=== PATIENT | male | born 1950 | race Caucasian/White ===

== ENCOUNTER 2017-01-03 15:27 | Emergency (ER) | payer OTHER ==
[~2017-01-03] VITALS: Ht 174 cm; Wt 100.5 kg
[2017-01-03 15:32] VITALS: TEMP 37.1; Ht 174 cm; Wt 100.5 kg
[2017-01-03] MEDS ORDERED: FLUT1SPR12 NAE (15:58)
[2017-01-03] MEDS ORDERED: ASPI81TA28 PO (15:58)
[2017-01-03] MEDS ORDERED: CHOL1000 PO (15:58)
--- NOTE | 2017-01-03 16:06 | EMERGENCY ROOM VISIT NOTE ---
History First contact with patient: 15:45 Chief Complaint: HYPERTENSION Stated Complaint: HIGH BLOOD PRESSURE, DIZZY History of Present Illness The patient is a 66 year old male who presents to the Emergency Room via private vehicle accompanied by female with complaints of "high blood pressure, dizzy". The patient states that back in the spring time he felt some pressure inside his head. He states that there is discomfort in the right eustachian tube region and was seen by his family doctor who believed that hypertension could be the cause but his blood pressure was 135/84. His symptoms resolved until recently he has had pain in the temples on both sides of the head described as a pressure. He states that he was given Flonase nearly 2 weeks ago by his family doctor over concern of eustachian tube dysfunction. He states that his years at the time that looked appropriate. He states that his family doctor encouraged him to keep a note of his daily blood pressures over the past 6 days. Today is day 6 and he notes that he has had averages in the 160 systolic over 80-90 diastolic range. He states that today his blood pressure was elevated at 185/85. He states that he had a dizzy spell, and did not feel quite right today. He took 2 baby aspirin. His legs felt weak bilaterally. At this time his complaints are mild dizziness, and a slight discomfort in the head. He denies any chest pain or shortness of breath. He states that prior to coming here his blood pressure was 189/102 prompting his visit here today. He denies any troubles with speech, unilateral weakness, or recent tick bites. He does not take any medications for his blood pressure at this time. There is no history of Lyme disease. Review of Systems A complete 10-point Review of Systems was discussed with the patient, with pertinent positives and negatives listed in the History of Present Illness. All remaining Review of Systems questions can be considered negative unless otherwise specified. Past Medical/Surgical History Medical Problems: (1) Chronic rhinitis (2) Distal radius fracture, right No pertinent. Family History No pertinent. Social History Smoking Status: Former Smoker Patient lives locally with family. Current/Historical Medications Scheduled Aspirin (Aspirin Ec), 81 MG PO DAILY Cholecalciferol (Vitamin D3), 1,000 INTER.UNIT PO DAILY Fluticasone Propionate (Nasal) (Flonase Allergy Relief ), 2 SPRAYS KODY DAILY Physical Exam Vital Signs Date Time Temp Pulse Resp B/P (MAP) Pulse Ox O2 Delivery O2 Flow Rate FiO2 01/03/17 18:53 76 20 157/93 98 Room Air 01/03/17 17:58 65 20 160/87 98 Room Air 01/03/17 17:00 68 20 155/78 99 Room Air 01/03/17 16:27 69 20 179/86 97 Room Air Nasal Cannula 01/03/17 16:26 70 01/03/17 16:25 97 Room Air 01/03/17 15:32 37.1 94 20 205/103 97 Room Air Physical Exam VITAL SIGNS - Vital signs and nursing notes were reviewed. Hypertensive. GENERAL -66-year-old male appearing his stated age who is in no acute distress. Communicates well with provider and answers questions appropriately. SKIN - Without rashes. No petechial rashes. HEAD - NC/AT. EYES - PERRL with EOMI bilaterally. Sclera anicteric. Palpebral conjunctiva pink and moist with no injection noted EARS - No deformities of external structures noted on gross examination bilaterally. No pain elicited with palpation of the tragus bilaterally. External auditory canals without discharge or otorrhea. Tympanic membranes pearly banks without retraction or bulging. No fluid or purulent material visualized behind the TM. Handle of malleSeptum midline without deviation or septal hematoma noted. MOUTH/OROPHARYNX - Without perioral cyanosis. Buccal mucosa pink and moist and without leukoplakia. Tongue midline with equal elevation of palate bilaterally. No tonsillar hypertrophy, erythema, or exudates noted. NECK - Neck with FROM. LUNGS - Chest wall symmetric without accessory muscle use, intercostals retractions, or central cyanosis. Normal vesicular breath sounds CTA B/L. No wheezes, rales, or rhonchi appreciated. CARDIAC - RRR with S1/S2. No murmur, rubs, or gallops appreciated. EXTREMITIES - No clubbing or peripheral cyanosis. No pretibial edema present. NEUROLOGIC - Cranial nerves II through XII grossly intact. Sensory intact to light touch throughout. PSYCH - A&Ox3 and cooperates fully with examiner. Pt is very pleasant and interacts well with examiner. Medical Decision & Procedures ER Provider Diagnostic Interpretation: CHEST ONE VIEW PORTABLE HISTORY: 66 years-old Male Hypertensive, dizziness, head pressure acute dizziness with hypertension COMPARISON: None available TECHNIQUE: Portable upright AP view of the chest FINDINGS: Cardiomediastinal and hilar silhouettes are within normal limits. There is no pneumothorax, pleural effusion, focal airspace consolidation or overt pulmonary edema. Mild right hemidiaphragmatic elevation. Bones of the chest appear grossly intact. IMPRESSION: Mild right hemidiaphragmatic elevation without acute cardiopulmonary process. The above report was generated using voice recognition software. It may contain grammatical, syntax or spelling errors. Electronically signed by: Hernan Wells M.D. 01/03/2017 4:43 PM Dictated Date/Time: 01/03/2017 4:42 PM HEAD WITHOUT CONTRAST (CT) CLINICAL HISTORY: 66 years-old Male with Hypertensive, dizziness, head pressure. Acute headache with hypertension TECHNIQUE: Multiple axial CT images of the head were obtained without contrast. A dose lowering technique was utilized adhering to the principles of ALARA. CT DOSE: 614.27 mGy.cm COMPARISON: None. FINDINGS: No acute intracranial hemorrhage, midline shift, mass, large territorial ischemia or abnormal extra-axial collection. There is mild atrophy with ex vacuo ventriculomegaly. Coarse calcifications of the falx cerebri are noted. The calvarium is intact. The mastoid air cells, and middle ear cavities are clear. Minimal polypoid mucosal thickening of the left maxillary sinus. Soft tissues are unremarkable. Orbits are symmetric. IMPRESSION: No acute intracranial abnormality. The above report was generated using voice recognition software. It may contain grammatical, syntax or spelling errors. Electronically signed by: Hernan Wells M.D. 01/03/2017 4:52 PM Dictated Date/Time: 01/03/2017 4:50 PM Laboratory Results 01/03/17 17:23 Red Blood Count 4.80, Mean Corpuscular Volume 86.3, Mean Corpuscular Hemoglobin 31.0, Mean Corpuscular Hemoglobin Concent 36.0, Mean Platelet Volume 10.1, Neutrophils (%) (Auto) 77.5, Lymphocytes (%) (Auto) 15.6, Monocytes (%) (Auto) 6.3, Eosinophils (%) (Auto) 0.3, Basophils (%) (Auto) 0.1, Neutrophils # (Auto) 7.83, Lymphocytes # (Auto) 1.58, Monocytes # (Auto) 0.64, Eosinophils # (Auto) 0.03, Basophils # (Auto) 0.01 01/03/17 17:23 Test 01/03/17 16:35 01/03/17 17:23 01/03/17 17:30 Lyme Disease IgG Antibody NEG (NEG) Lyme Disease IgM Antibody NEG (NEG) White Blood Count 10.11 K/uL (4.8-10.8) Red Blood Count 4.80 M/uL (4.7-6.1) Hemoglobin 14.9 g/dL (14.0-18.0) Hematocrit 41.4 % (42-52) Mean Corpuscular Volume 86.3 fL (80-100) Mean Corpuscular Hemoglobin 31.0 pg (25-34) Mean Corpuscular Hemoglobin Concent 36.0 g/dl (32-36) Platelet Count 197 K/uL (130-400) Mean Platelet Volume 10.1 fL (7.4-10.4) Neutrophils (%) (Auto) 77.5 % Lymphocytes (%) (Auto) 15.6 % Monocytes (%) (Auto) 6.3 % Eosinophils (%) (Auto) 0.3 % Basophils (%) (Auto) 0.1 % Neutrophils # (Auto) 7.83 K/uL (1.4-6.5) Lymphocytes # (Auto) 1.58 K/uL (1.2-3.4) Monocytes # (Auto) 0.64 K/uL (0.11-0.59) Eosinophils # (Auto) 0.03 K/uL (0-0.5) Basophils # (Auto) 0.01 K/uL (0-0.2) RDW Standard Deviation 38.4 fL (36.4-46.3) RDW Coefficient of Variation 12.1 % (11.5-14.5) Immature Granulocyte % (Auto) 0.2 % Immature Granulocyte # (Auto) 0.02 K/uL (0.00-0.02) Prothrombin Time 11.1 SECONDS (9.0-12.0) Prothromb Time International Ratio 1.0 (0.9-1.1) Activated Partial Thromboplast Time 27.9 SECONDS (21.0-31.0) Partial Thromboplastin Ratio 1.1 Anion Gap 10.0 mmol/L (3-11) Est Creatinine Clear Calc Drug Dose 91.0 ml/min Estimated GFR () 101.4 Estimated GFR (Non- 87.5 BUN/Creatinine Ratio 11.4 (10-20) Calcium Level 9.2 mg/dl (8.5-10.1) Magnesium Level 2.3 mg/dl (1.8-2.4) Total Bilirubin 0.4 mg/dl (0.2-1) Aspartate Amino Transf (AST/SGOT) 32 U/L (15-37) Alanine Aminotransferase (ALT/SGPT) 54 U/L (12-78) Alkaline Phosphatase 68 U/L (45-117) Total Creatine Kinase 229 U/L (39-308) Creatine Kinase MB 2.6 ng/ml (0.5-3.6) Creatine Kinase MB Ratio 1.1 (0-3.0) Troponin I < 0.015 ng/ml (0-0.045) Total Protein 7.7 gm/dl (6.4-8.2) Albumin 4.1 gm/dl (3.4-5.0) Globulin 3.6 gm/dl (2.5-4.0) Albumin/Globulin Ratio 1.1 (0.9-2) Thyroid Stimulating Hormone (TSH) 1.520 uIu/ml (0.300-4.500) Urine Color YELLOW Urine Appearance CLEAR (CLEAR) Urine pH 5.0 (4.5-7.5) Urine Specific [place] 1.015 (1.000-1.030) Urine Protein NEG (NEG) Urine Glucose (UA) NEG (NEG) Urine Ketones NEG (NEG) Urine Occult Blood NEG (NEG) Urine Nitrite NEG (NEG) Urine Bilirubin NEG (NEG) Urine Urobilinogen NEG (NEG) Urine Leukocyte Esterase NEG (NEG) Medical Decision Patient was seen and evaluated as above. He presents to us today with high blood pressure and dizziness as well as lower extremity weakness for a brief period of time. His symptoms appear to be resolved upon my examination. He converses well. He comes into the hospital with a blood pressure of 205/103. I this time will monitor this will not initiate any medications. Chest x-ray was obtained as well as CT of the head and no emergent process identified. Patient's EKG was obtained 2 and does reveal an inferior infarct no evidence of ST segment elevation myocardial infarction. Troponin negative. Patient was trending in the correct direction with his blood pressure on his own well here in the emergency department. There is no leukocytosis. Hematocrit slightly low at 41.4. Hemoglobin is okay. Coags normal. Patient's metabolic panel reveals no evidence of kidney or liver failure. Glucose is at 1:30. Troponin negative. Thyroid function reveals a euthyroid state. Urine is negative. Lyme testing is negative. I discussed the case with the attending physician, and the recommendation was made to the patient that he should likely be admitted for further evaluation and management of a suspected potential TIA. He is at risk given the persistent high blood pressure. The case was discussed with Mora Grewal NP with [facility] team. Please refer to further documentation regarding the patient's stay. In the evaluation and treatment of this patient the following differential diagnoses were entertained: ID, PE, TIA, CVA, hypertensive urgency, hypertensive emergency, among others. Impression Primary Impression: Hypertension Additional Impression: TIA (transient ischemic attack) Departure Information Dispostion Admitted as an inpatient Condition FAIR Referrals Rosas Araujo M.D. (PCP) Patient Instructions My [facility] Health Problem Qualifiers
[2017-01-03 16:25] VITALS: O2SAT 97
--- NOTE | 2017-01-03 16:44 | DIAGNOSTIC IMAGING REPORT ---
CHEST ONE VIEW PORTABLE HISTORY: 66 years-old Male Hypertensive, dizziness, head pressure acute dizziness with hypertension COMPARISON: None available TECHNIQUE: Portable upright AP view of the chest FINDINGS: Cardiomediastinal and hilar silhouettes are within normal limits. There is no pneumothorax, pleural effusion, focal airspace consolidation or overt pulmonary edema. Mild right hemidiaphragmatic elevation. Bones of the chest appear grossly intact. IMPRESSION: Mild right hemidiaphragmatic elevation without acute cardiopulmonary process. The above report was generated using voice recognition software. It may contain grammatical, syntax or spelling errors. Electronically signed by: Hernan Wells M.D. 01/03/2017 4:43 PM Dictated Date/Time: 01/03/2017 4:42 PM
--- NOTE | 2017-01-03 16:53 | DIAGNOSTIC IMAGING REPORT ---
HEAD WITHOUT CONTRAST (CT) CLINICAL HISTORY: 66 years-old Male with Hypertensive, dizziness, head pressure. Acute headache with hypertension TECHNIQUE: Multiple axial CT images of the head were obtained without contrast. A dose lowering technique was utilized adhering to the principles of ALARA. CT DOSE: 614.27 mGy.cm COMPARISON: None. FINDINGS: No acute intracranial hemorrhage, midline shift, mass, large territorial ischemia or abnormal extra-axial collection. There is mild atrophy with ex vacuo ventriculomegaly. Coarse calcifications of the falx cerebri are noted. The calvarium is intact. The mastoid air cells, and middle ear cavities are clear. Minimal polypoid mucosal thickening of the left maxillary sinus. Soft tissues are unremarkable. Orbits are symmetric. IMPRESSION: No acute intracranial abnormality. The above report was generated using voice recognition software. It may contain grammatical, syntax or spelling errors. Electronically signed by: Hernan Wells M.D. 01/03/2017 4:52 PM Dictated Date/Time: 01/03/2017 4:50 PM
[2017-01-03 17:28] LABS: LYME DISEASE AB IGG NEG (NEG); LYME DISEASE AB IGM NEG (NEG)
[2017-01-03 17:46] LABS: BASO % 0.1 %; BASO ABS # 0.01 K/uL (0-0.2); COMPLETE YES; EOS % 0.3 %; HEMATOCRIT 41.4 % (42-52); IG% 0.2 %; LYMPH % 15.6 %; LYMPH ABS # 1.58 K/uL (1.2-3.4); MEAN CELL VOLUME 86.3 fL (80-100); MEAN PLATELET VOLUME 10.1 fL (7.4-10.4); MONO % 6.3 %; NEUT % 77.5 %; PLATELET COUNT 197 K/uL (130-400); WHITE BLOOD COUNT 10.11 K/uL (4.8-10.8)
[2017-01-03 17:56] LABS: PARTIAL THROMBOPLASTIN RATIO 1.1; PROTHROMBIN TIME (PATIENT) 11.1 SECONDS (9.0-12.0)
[2017-01-03 18:01] LABS: URINE APPEARANCE CLEAR (CLEAR); URINE BILIRUBIN NEG (NEG); URINE COLOR YELLOW; URINE NITRITE NEG (NEG); URINE SPECIFIC GRAVITY 1.015 (1.000-1.030); UROBILINOGEN NEG (NEG); ZZUR CULT IF INDIC CLEAN CATCH NO
[2017-01-03 18:03] LABS: MANUAL MICROSCOPIC REQUIRED? NO; REVIEW REQ? NO
[2017-01-03 18:06] LABS: ALT/SGPT 54 U/L (12-78); BLOOD UREA NITROGEN 10 mg/dl (7-18); BUN/CREATININE RATIO 11.4 (10-20); CALCIUM 9.2 mg/dl (8.5-10.1); CARBON DIOXIDE 25 mmol/L (21-32); CHLORIDE 104 mmol/L (98-107); GLUCOSE 130 mg/dl (70-99); MAGNESIUM 2.3 mg/dl (1.8-2.4); SODIUM 138 mmol/L (136-145)
[2017-01-03 18:17] LABS: ALB/GLOB RATIO 1.1 (0.9-2); ALKALINE PHOSPHATASE 68 U/L (45-117); AST/SGOT 32 U/L (15-37); CKMB/CK RATIO 1.1 (0-3.0)
[2017-01-03] MEDS ORDERED: LISINOPRIL 5 MG TAB PO ONE ×2 (19:45→20:15)
[2017-01-03] MEDS ORDERED: LISINOPRIL 5 MG TAB ONE (20:15)
[2017-01-03 20:45] VITALS: BP 179/99; PULSE 88; O2SAT 98
--- NOTE | 2017-01-03 21:12 | INTERNAL MEDICINE CONSULTATION ---
DATE OF CONSULTATION: 01/03/2017 PRIMARY CARE DOCTOR: Dr. Araujo Patient seen on the request of Dr. Lei Sun/Ebenezer Dyer PA-C for evaluation of hypertension and dizziness. History & Physical Date & Time of Service: Jan 03, 2017 at 19:47 Chief Complaint: High Blood Pressure Primary Care Physician: Rosas Araujo M.D. History of Present Illness 66 year old male who presents to the ED with elevated blood pressure. Patient reports he was seen by his PCP last week for right ear pain and a headache located posteriorly and along both sides of his head. He was noted to have an elevated blood pressure at that visit. Patient was instructed to monitor his BP at home over the next week. He was given Flonase for his ear pain which he reports has improved. His blood pressures at home have been running in the 160s/ 80s. He reports he took it today and it was much higher in the 180s/80s. He reports he felt mildly lightheaded and dizzy for a few seconds however that quickly resolved on its own. He then went outside to talk with his neighbors and he reports both if his legs felt a little weak however he did not fall and was able to stay outside for about 20 minutes. He then went back inside and took his blood pressure and it was in the low 200s systolically. He then came to the ED for further evaluation. Patient denies any other symptoms. No chest pain or shortness of breath. He denies worsening headache, blurred vision, unilateral weakness, numbness, or tingling, no slurred speech, facial droop, or drooling. He denies abdominal pain, nausea, or vomiting. No other recent illnesses, fever, or chills. He denies urinary symptoms. In the ED, patient's BP was elevated at 205/103. He had a head CT that was negative for acute findings. BP improved on its own without medication to 157/93. Past Medical/Surgical History Medical Problems: (1) Chronic rhinitis Status: Chronic (2) Distal radius fracture, right Permanent Comment: s/p ORIF Status: Chronic Family History FH: emphysema FATHER FH: heart disease MOTHER Stroke BROTHER Social History Smoking Status: Former Smoker Alcohol Use: 1-2 glasses wine/night Immunizations History of Influenza Vaccine: Yes Influenza Vaccine Date: Nov 26, 2014 History of Tetanus Vaccine?: Yes Tetanus Immunization Date: May 28, 2011 History of Pneumococcal: Yes Pneumococcal Date: June 27, 2016 Multi-Drug Resistant Organisms History of MDRO: No Allergies Coded Allergies: No Known Allergies (Unverified , 01/03/17) Home Medications Scheduled Aspirin (Aspirin Ec), 81 MG PO DAILY Cholecalciferol (Vitamin D3), 1,000 INTER.UNIT PO DAILY Fluticasone Propionate (Nasal) (Flonase Allergy Relief Ch), 2 SPRAYS KODY DAILY Review of Systems ROS per HPI, all other systems reviewed and negative Physical Exam Vital Signs Date Time Temp Pulse Resp B/P (MAP) Pulse Ox O2 Delivery O2 Flow Rate FiO2 01/03/17 18:53 76 20 157/93 98 Room Air 01/03/17 17:58 65 20 160/87 98 Room Air 01/03/17 17:00 68 20 155/78 99 Room Air 01/03/17 16:27 69 20 179/86 97 Room Air Nasal Cannula 01/03/17 16:26 70 01/03/17 16:25 97 Room Air 01/03/17 15:32 37.1 94 20 205/103 97 Room Air General Appearance: WD/WN, no apparent distress Head: normocephalic, atraumatic Eyes: normal inspection, PERRL, EOMI, sclerae normal ENT: hearing grossly normal, + pertinent finding (mucous membranes moist) Neck: supple, no JVD, trachea midline Respiratory/Chest: lungs clear, normal breath sounds, no respiratory distress Cardiovascular: regular rate, rhythm, no edema, normal peripheral pulses Abdomen/GI: normal bowel sounds, non tender, soft, no organomegaly Extremities/Musculoskelatal: normal inspection, no calf tenderness, normal capillary refill Neurologic/Psych: no motor/sensory deficits, alert, normal mood/affect, oriented x 3 Skin: normal color, warm/dry Diagnostics Laboratory Results Results Past 24 Hours Test 01/03/17 15:55 01/03/17 16:35 01/03/17 17:23 01/03/17 17:30 Range/Units Creatine Kinase MB Ratio 1.1 0-3.0 Lyme Disease IgG Antibody NEG NEG Lyme Disease IgM Antibody NEG NEG White Blood Count 10.11 4.8-10.8 K/uL Red Blood Count 4.80 4.7-6.1 M/uL Hemoglobin 14.9 14.0-18.0 g/dL Hematocrit 41.4 42-52 % Mean Corpuscular Volume 86.3 80-100 fL Mean Corpuscular Hemoglobin 31.0 25-34 pg Mean Corpuscular Hemoglobin Concent 36.0 32-36 g/dl Platelet Count 197 130-400 K/uL Mean Platelet Volume 10.1 7.4-10.4 fL Neutrophils (%) (Auto) 77.5 % Lymphocytes (%) (Auto) 15.6 % Monocytes (%) (Auto) 6.3 % Eosinophils (%) (Auto) 0.3 % Basophils (%) (Auto) 0.1 % Neutrophils # (Auto) 7.83 1.4-6.5 K/uL Lymphocytes # (Auto) 1.58 1.2-3.4 K/uL Monocytes # (Auto) 0.64 0.11-0.59 K/uL Eosinophils # (Auto) 0.03 0-0.5 K/uL Basophils # (Auto) 0.01 0-0.2 K/uL RDW Standard Deviation 38.4 36.4-46.3 fL RDW Coefficient of Variation 12.1 11.5-14.5 % Immature Granulocyte % (Auto) 0.2 % Immature Granulocyte # (Auto) 0.02 0.00-0.02 K/uL Prothrombin Time 11.1 9.0-12.0 SECONDS Prothromb Time International Ratio 1.0 0.9-1.1 Activated Partial Thromboplast Time 27.9 21.0-31.0 SECONDS Partial Thromboplastin Ratio 1.1 Sodium Level 138 136-145 mmol/L Potassium Level 4.0 3.5-5.1 mmol/L Chloride Level 104 98-107 mmol/L Carbon Dioxide Level 25 21-32 mmol/L Anion Gap 10.0 3-11 mmol/L Blood Urea Nitrogen 10 7-18 mg/dl Creatinine 0.90 0.60-1.40 mg/dl Est Creatinine Clear Calc Drug Dose 91.0 ml/min Estimated GFR () 101.4 Estimated GFR (Non- 87.5 BUN/Creatinine Ratio 11.4 10-20 Random Glucose 130 70-99 mg/dl Calcium Level 9.2 8.5-10.1 mg/dl Magnesium Level 2.3 1.8-2.4 mg/dl Total Bilirubin 0.4 0.2-1 mg/dl Aspartate Amino Transf (AST/SGOT) 32 15-37 U/L Alanine Aminotransferase (ALT/SGPT) 54 12-78 U/L Alkaline Phosphatase 68 45-117 U/L Total Creatine Kinase 229 39-308 U/L Creatine Kinase MB 2.6 0.5-3.6 ng/ml Troponin I < 0.015 0-0.045 ng/ml Total Protein 7.7 6.4-8.2 gm/dl Albumin 4.1 3.4-5.0 gm/dl Globulin 3.6 2.5-4.0 gm/dl Albumin/Globulin Ratio 1.1 0.9-2 Thyroid Stimulating Hormone (TSH) 1.520 0.300-4.500 uIu/ml Urine Color YELLOW Urine Appearance CLEAR CLEAR Urine pH 5.0 4.5-7.5 Urine Specific [place] 1.015 1.000-1.030 Urine Protein NEG NEG Urine Glucose (UA) NEG NEG Urine Ketones NEG NEG Urine Occult Blood NEG NEG Urine Nitrite NEG NEG Urine Bilirubin NEG NEG Urine Urobilinogen NEG NEG Urine Leukocyte Esterase NEG NEG Diagnostic Radiology HEAD CT IMPRESSION: No acute intracranial abnormality. CXR IMPRESSION: Mild right hemidiaphragmatic elevation without acute cardiopulmonary process. Impression Assessment and Plan HYPERTENSIVE URGENCY - Patient presenting to the ED with increasing blood pressures over the past week. In the ED, patient presented with a BP of 205/103 which improved without intervention to 157/93. Head CT is negative for acute findings. History does not suggest TIA or CVA. Troponin negative, EKG without acute ST changes. EKG does show age indeterminate inferior infarct. Could obtain echo. Lisinopril 5mg ordered. Dr. Layton to evaluate the patient for possible discharge home. <Electronically signed by Mora SALINAS> Signed: 01/03/172007 ATTENDING : Patient seen and examined. History was obtained from the patient, , and records. Preceding documentation by BRAD Morocho, reviewed. In addition, SBP currently 160s without intervention at the ER. Patient currently comfortable. Patient was given option of staying in the hospital for observation versus going home. Patient comfortable going home. FINAL ASSESSMENT AND RECOMMENDATIONS as follows: 1. Dizziness secondary to hypertensive urgency. 2. hx prediabetes. 3. Past tobacco abuse. 4. Abnormal EKG (inferior infarct, no previous EKG for comparison) Patient denies chest pain, SOB symptoms. Lisinopril 5 mg by mouth daily, first dose now. Daily blood pressure home log until seen by PCP next week. Follow up chemistry after initiation of MAIDA inhibitor therapy on follow-up with PCP. Consider outpatient 2D echo for abnormal EKG. Patient was instructed to return to ER for dizziness, uncontrolled BP, chest pain or shortness of breath symptoms. Patient and expressed understanding and were amenable to the plan of care. Thank you very much for this consultation. FIORELLA
[2017-01-04] MEDS ORDERED: LISINOPRIL 5 MG TAB PO SCH (09:00)
== END 2017-01-03 20:45 | disposition home or self-care (01) ==
LOC: C.EDB 15:28
DX: I16.0 Hypertensive urgency (principal); G45.9 Transient cerebral ischemic attack, unspecified; R94.31 Abnormal electrocardiogram [ECG] [EKG]; Z87.891 Personal history of nicotine dependence; Z98.890 Other specified postprocedural states; Z79.82 Long term (current) use of aspirin; Z82.3 Family history of stroke

== ENCOUNTER 2017-03-16 20:34 | Inpatient (IN) | payer OTHER ==
[~2017-03-16] VITALS: Ht 174 cm; Wt 90.5 kg
[~2017-03-16 20:34] MED LIST: ASPI81TA28 PO; ATOR-22 PO; CHOL1000 PO; FLUT1SPR12 NAE; LISI-787 PO; SILD1TAB25 PO
[2017-03-16] MEDS ORDERED: NITROGLYCERIN OINT 2% 1GM PACKET EXT ONE (21:00)
[2017-03-16 21:26] LABS: BASO % 0.3 %; BASO ABS # 0.03 K/uL (0-0.2); EOS % 0.7 %; EOS ABS # 0.08 K/uL (0-0.5); HEMATOCRIT 40.4 % (42-52); HEMOGLOBIN 14.3 g/dL (14.0-18.0); IG# 0.02 K/uL (0.00-0.02); INR 1.1 (0.9-1.1); LYMPH % 22.7 %; LYMPH ABS # 2.45 K/uL (1.2-3.4); MEAN CELL VOLUME 85.4 fL (80-100); MEAN CORPUSCULAR HEMOGLOBIN 30.2 pg (25-34); MEAN CORPUSCULAR HGB CONC 35.4 g/dl (32-36); MEAN PLATELET VOLUME 10.6 fL (7.4-10.4); MONO % 6.9 %; MONO ABS # 0.74 K/uL (0.11-0.59); NEUT % 69.2 %; NEUT ABS # 7.47 K/uL (1.4-6.5); PLATELET COUNT 273 K/uL (130-400); PTT PATIENT 26.7 SECONDS (21.0-31.0); RED CELL DISTRIBUTION WIDTH CV 12.1 % (11.5-14.5); RED CELL DISTRIBUTION WIDTH SD 38.2 fL (36.4-46.3); WHITE BLOOD COUNT 10.79 K/uL (4.8-10.8)
[2017-03-16 21:41] LABS: CALCIUM 9.5 mg/dl (8.5-10.1); CREATININE 0.92 mg/dl (0.60-1.40); POTASSIUM 3.5 mmol/L (3.5-5.1)
--- NOTE | 2017-03-16 21:49 | DIAGNOSTIC IMAGING REPORT ---
CHEST ONE VIEW PORTABLE HISTORY: Atypical chest pain. COMPARISON: Chest 01/03/2017. FINDINGS: The lungs are clear. Cardiac silhouette is normal in size. No pleural effusions. No pneumothorax. IMPRESSION: No acute process. Electronically signed by: Maxime Barrera M.D. 03/16/2017 9:47 PM Dictated Date/Time: 03/16/2017 9:46 PM
[2017-03-16] MEDS ORDERED: FENTANYL CITRATE INJ 50 MCG/1 ML 2 ML VIAL IV STA (22:01)
[2017-03-16] MEDS ORDERED: ONDANSETRON INJ 2 MG/ML 2 ML VIAL IV STA (22:01)
[2017-03-16] MEDS ORDERED: HEPARIN 25000 UNIT/500 ML D5W ONE (22:07)
[2017-03-16] MEDS ORDERED: HEPARIN SOD 5000 UNIT/0.5 ML CARP ONE (22:07)
[2017-03-16] MEDS ORDERED: ONDANSETRON INJ 2 MG/ML 2 ML VIAL IV PRN (22:45)
[2017-03-16] MEDS ORDERED: ACETAMINOPHEN 325 MG TAB PO PRN (22:45)
[2017-03-16] MEDS ORDERED: NITROGLYCERIN 0.4 MG SL PER TAB CHARGE SL PRN (23:00)
[2017-03-16 23:20] VITALS: BP 148/79; PULSE 64; TEMP 36.7; O2SAT 95; Ht 174 cm; Wt 90.5 kg
[2017-03-16] MEDS ORDERED: NSS + 20MEQ KCL 1000ML 1,000 ML IV SCH (23:59)
[2017-03-17] VITALS (8 sets, daily range): BP systolic 99–124; BP diastolic 53–74; PULSE 54–70; TEMP 36.5–36.7; O2SAT 95–97
--- NOTE | 2017-03-17 00:17 | EMERGENCY ROOM VISIT NOTE ---
History Report prepared by Gabrielle: Lucy Lockett Under the Supervision of: Dr. Avni Stahl M.D. First contact with patient: 20:49 Chief Complaint: CARDIAC ASSESSMENT Stated Complaint: Chest Pain, Cath yesterday History of Present Illness The patient is a 67 year old male who presents to the Emergency Room brought in by EMS with complaints of constant chest pain 0 today. The patient notes that he recently had a cardiac catheterization yesterday and was prescribed nitroglycerin. He states that he has been experiencing hot flashes today and mild anxiety. He notes the sharp pain in his chest that occurred earlier today and seemed to persist causing him to notify 911. He states that he took nitroglycerin and the sharp pain resolved itself before the ambulance arrived, though chest tightness remained. He notes the sharp pain was immediately followed by hot flashes, rapid heartbeat, and sweating. He denies any shortness of breath or pain radiating to his arms. He notes EMS administered four baby aspirin. He denies any current hot flashes or sweating, though still feels chest tightness. He currently rates his pain a 3/10 in severity. He has a history of HTN and was seen in the ED January 03, 2017 for abnormally high blood pressure, dizziness, and lightheadedness. He denies any fever, cough, or leg swelling. Source of History: patient Onset: 1829 today Position: chest Symptom Intensity: 3/10 Quality: pressure, sharp Timing: constant Associated Symptoms: No fevers, No cough, No SOB Note: He notes hot flashes, sweating, rapid heartbeat, and anxiety. He denies any leg swelling or pain radiating to arms. Review of Systems See HPI for pertinent positives & negatives. A total of 10 systems reviewed and were otherwise negative. Past Medical & Surgical Medical Problems: (1) CAD (coronary artery disease) (2) Chest pain (3) Chronic rhinitis (4) Distal radius fracture, right Family History FH: emphysema FATHER FH: heart disease MOTHER Stroke BROTHER Social History Smoking Status: Former Smoker Alcohol Use: none Drug Use: none Marital Status: Housing Status: lives with family Current/Historical Medications Scheduled Aspirin (Aspirin Ec), 81 MG PO DAILY Atorvastatin (Lipitor), 20 MG PO DAILY Cholecalciferol (Vitamin D3), 1,000 INTER.UNIT PO DAILY Fluticasone Propionate (Nasal) (Flonase Allergy Relief Ch), 2 SPRAYS KODY DAILY Lisinopril/Hctz (Zestoretic 20MG/12.5MG), 1 TAB PO DAILY Scheduled PRN Sildenafil Citrate (Revatio), 2-5 TABS PO UD PRN for ED Allergies Coded Allergies: No Known Allergies (Unverified , 01/03/17) Physical Exam Vital Signs Date Time Temp Pulse Resp B/P (MAP) Pulse Ox O2 Delivery O2 Flow Rate FiO2 03/16/17 22:34 65 15 93 Room Air 03/16/17 22:30 126/78 03/16/17 22:04 70 14 94 Room Air 03/16/17 22:00 123/76 03/16/17 21:36 Room Air 03/16/17 21:34 70 22 94 Room Air 03/16/17 21:30 132/71 03/16/17 21:17 116/75 03/16/17 21:04 76 21 95 Room Air 03/16/17 21:00 72 03/16/17 20:52 36.8 94 20 121/75 94 Room Air 03/16/17 20:52 Room Air 03/16/17 20:40 121/75 Physical Exam Constitutional: Vital signs reviewed. Eyes: Pupils are equal round reactive to light. Conjunctiva are noninjected. ENT: Pharynx is clear without erythema or exudate. Mucous membranes are moist. Neck supple without meningeal signs. Respiratory: Clear to auscultation bilaterally. Breath sounds are equal bilaterally. Cardiovascular: Regular rate and rhythm. No rubs or gallops. GI: Soft, nondistended and nontender. Bowel sounds are present. Musculoskeletal: No peripheral edema. No lower extremity tenderness. Integumentary: No cyanosis. Neurological: The patient is awake and alert. No focal deficits. Psychiatric: Normal affect. Medical Decision & Procedures ER Provider Diagnostic Interpretation: Radiology results as stated below per my review and the radiologist's interpretation: CHEST ONE VIEW PORTABLE HISTORY: Atypical chest pain. COMPARISON: Chest 01/03/2017. FINDINGS: The lungs are clear. Cardiac silhouette is normal in size. No pleural effusions. No pneumothorax. IMPRESSION: No acute process. Electronically signed by: Maxime Barrera M.D. 03/16/2017 9:47 PM Dictated Date/Time: 03/16/2017 9:46 PM Laboratory Results 03/16/17 20:18 Red Blood Count 4.73, Mean Corpuscular Volume 85.4, Mean Corpuscular Hemoglobin 30.2, Mean Corpuscular Hemoglobin Concent 35.4, Mean Platelet Volume 10.6, Neutrophils (%) (Auto) 69.2, Lymphocytes (%) (Auto) 22.7, Monocytes (%) (Auto) 6.9, Eosinophils (%) (Auto) 0.7, Basophils (%) (Auto) 0.3, Neutrophils # (Auto) 7.47, Lymphocytes # (Auto) 2.45, Monocytes # (Auto) 0.74, Eosinophils # (Auto) 0.08, Basophils # (Auto) 0.03 03/16/17 20:18 Test 03/16/17 20:18 03/16/17 21:05 White Blood Count 10.79 K/uL (4.8-10.8) Red Blood Count 4.73 M/uL (4.7-6.1) Hemoglobin 14.3 g/dL (14.0-18.0) Hematocrit 40.4 % (42-52) Mean Corpuscular Volume 85.4 fL (80-100) Mean Corpuscular Hemoglobin 30.2 pg (25-34) Mean Corpuscular Hemoglobin Concent 35.4 g/dl (32-36) Platelet Count 273 K/uL (130-400) Mean Platelet Volume 10.6 fL (7.4-10.4) Neutrophils (%) (Auto) 69.2 % Lymphocytes (%) (Auto) 22.7 % Monocytes (%) (Auto) 6.9 % Eosinophils (%) (Auto) 0.7 % Basophils (%) (Auto) 0.3 % Neutrophils # (Auto) 7.47 K/uL (1.4-6.5) Lymphocytes # (Auto) 2.45 K/uL (1.2-3.4) Monocytes # (Auto) 0.74 K/uL (0.11-0.59) Eosinophils # (Auto) 0.08 K/uL (0-0.5) Basophils # (Auto) 0.03 K/uL (0-0.2) RDW Standard Deviation 38.2 fL (36.4-46.3) RDW Coefficient of Variation 12.1 % (11.5-14.5) Immature Granulocyte % (Auto) 0.2 % Immature Granulocyte # (Auto) 0.02 K/uL (0.00-0.02) Prothrombin Time 11.6 SECONDS (9.0-12.0) Prothromb Time International Ratio 1.1 (0.9-1.1) Activated Partial Thromboplast Time 26.7 SECONDS (21.0-31.0) Partial Thromboplastin Ratio 1.0 Anion Gap 8.0 mmol/L (3-11) Est Creatinine Clear Calc Drug Dose 85.1 ml/min Estimated GFR () 98.0 Estimated GFR (Non- 84.6 BUN/Creatinine Ratio 13.2 (10-20) Calcium Level 9.5 mg/dl (8.5-10.1) Bedside Troponin I < 0.030 ng/ml (0-0.045) Laboratory results as reviewed by me. Medications Administered Medications (Trade) Dose Ordered Sig/Patrizia Route Start Time Stop Time Status Last Admin Dose Admin Nitroglycerin (Nitroglycerin 2% Oint) 1 inch NOW ONCE EXT 03/16/17 21:00 03/16/17 21:03 DC 03/16/17 21:16 1 INCH Fentanyl Citrate (Fentanyl Inj) 50 mcg NOW STAT IV 03/16/17 22:01 03/16/17 22:02 DC 03/16/17 22:17 50 MCG Ondansetron HCl (Zofran Inj) 4 mg NOW STAT IV 03/16/17 22:01 03/16/17 22:02 DC 03/16/17 22:17 4 MG Heparin Sodium (Porcine) (Heparin Sq 5000 Unit/0.5ml) 10,000 unit STK-MED ONCE .ROUTE 03/16/17 22:07 03/16/17 22:08 DC 03/16/17 22:16 6,000 UNIT Heparin Sodium/ Dextrose (Heparin 25,000 Unit/500ml D5W) 25,000 unit STK-MED ONCE .ROUTE 03/16/17 22:07 03/16/17 22:08 DC 03/16/17 22:16 25,000 UNIT ECG Indication: chest pain Rate (beats per minute): 70 Rhythm: normal sinus Findings: Q waves (Inferior), no ectopy, other (No ST elevation) Change: Repeat ECG: Normal Sinus Rhythm 88 bpm Findings: Q waves inferiorly. No ST elevations. Q waves are present when compared to 01/03/2017 Patient's electrocardiogram per my interpretation. ED Course 2052: The patient was evaluated in room C12B. A complete history and physical exam was performed. 2100: Ordered Nitroglycerin 1 inch EXT 2152: I spoke with Dr. Silverio, [facility] cardiology. We discussed the patients case. He recommends heparinizing the patient and evaluating the patient for further care. 2154: I reassessed the patient at this time. The patient still has chest pressure. 2200: Ordered Zofran 4 mg IV and Fentanyl 50 mcg IV 2202: I spoke with Dr. Ramon, [facility] hospitalist. We discussed the patients case. [facility]. 2206: Ordered Heparin Sodium/Dextrose 25,000 unit IV and Heparin Sodium Porcine 10,000 unit IV 5: I reassessed the patient at this time. The patient's chest pressure.has been relieved. He is feeling better. Medical Decision This is a 67-year-old male who presents with chest pain. Differential diagnosis includes unstable angina, SD, anxiety, pleurisy, pneumothorax. I did perform a limited focused review of portions of the patient's old chart on the electronic medical record. The patient had a cardiac catheterization February. Findings showed severe two vessel CAD with an occlusion of RCA and 70 % stenosis of LAD. I did evaluate the patient as noted above. The patient was diagnosed with severe 2 vessel CAD yesterday on a catheterization. He is now presenting with chest pain. The patient was placed on a continuous monitor technician. He did receive aspirin prior to arrival. I did treat him with nitroglycerin paste. I did order and personally review the patient's 12-lead EKG and chest x-ray as described above. His 12-lead EKG does not demonstrate any acute ischemia. I did order and review the patient's blood work as noted in the electronic medical record. Troponin is negative. I did reassess the patient. He is not feeling any better and still has chest tightness. I did repeat a twelve-lead EKG which shows no changes. I did treat patient with fentanyl and Zofran IV. His chest pain did completely resolved. I did discuss the case with Dr. Silverio who performed the catheterization yesterday. He recommended the patient be heparinized and admitted to the hospitalist service. I did discuss heparin with the patient. I did start him on IV heparin with a bolus and a continuous infusion. I did discuss case with the hospitalist and case mgr. Medication Reconcilliation Current Medication List: was personally reviewed by me Blood Pressure Screening Patient's blood pressure: Elevated blood pressure Blood pressure disposition: Referred to PCP Consults Time Called: 2143 Consulting Physician: Caleb Steward cardiology Returned Call: 2152 I spoke with Caleb Steward cardiology. We discussed the patients case. He recommends heparinizing the patient and evaluating the patient for further care. Additional Consults: Time Called: 2158 Consulted Physician: Caleb Hernandez hospitalist Returned Call: [phone] Additional Comments: [facility] We discussed the patients case. [facility]. Impression Primary Impression: Acute coronary syndrome Critical Care I have personally spent 35 minutes of critical care time in the direct management of this patient. This includes bedside care, interpretation of diagnostic studies, and testing, discussion with consultants, patient, and family members, and other required patient management activities. This 35 minutes is in excess of all separately billable procedures. Scribe Attestation The scribe's documentation has been prepared under my direct and personally reviewed by me in its entirety. I confirm that the note above accurately reflects all work, treatment, procedures, and medical decision making performed by me. Departure Information Dispostion Being Evaluated By Hospitalist Referrals Rosas Araujo M.D. (PCP) Patient Instructions My [facility]
[2017-03-17] MEDS: MoRPHine SULFATE 4 MG/ML 1 ML CARP\\VIAL IV PRN ×2 (00:37→06:36)
[2017-03-17] MEDS: NITROGLYCERIN 2% OINTMENT 30GM TUBE EXT SCH ×3 (00:50→12:04)
--- NOTE | 2017-03-17 03:02 | HISTORY & PHYSICAL EXAMINATION ---
DATE OF ADMISSION: 03/16/2017 PRIMARY CARE PHYSICIAN: Rosas Araujo MD CHIEF COMPLAINT: Chest pain with anxiety and attention since this evening. HISTORY OF PRESENT COMPLAINT: He is a 67-year-old male with significant past medical history of hyperlipidemia, vitamin D deficiency, and also history of old NM and EKG abnormality. Apparently, underwent a cardiac catheterization yesterday. His cardiac cath report came out to be 2-vessel disease with occluded RCA with good collaterals and 70% LAD stenosis and he went home following the cardiac cath and he was supposed to see a cardiac surgeon in [place] on Saturday. He started to have substernal sharp chest pain in the precordium lasted for a few seconds followed by attack of anxiety which he used to get since December of last year when he was diagnosed with abnormal EKG and no old heart attack in the past and that actually took him to the cardiac catheterization lab yesterday. He did not have any shortness of breath with it. He did not have any nausea or vomiting. He did not feel dizzy. He took nitro x3 as per the instructions without any relief of the symptoms and he was taken to the Emergency Room. In ER, he was hemodynamically stable. He received Fentanyl with nitro paste and his pain subsided. His EKG did not show any significant abnormality compared with before and his troponin negative, but given the history of cardiac catheterization and CAD, he was started with heparin and was admitted to telemetry unit. PAST MEDICAL HISTORY: Significant for vitamin D deficiency. FAMILY HISTORY: GI malignancy, hyperlipidemia, obesity, chronic sinusitis, history of old NM and hypertension. PAST SURGICAL HISTORY: Nothing significant. FAMILY HISTORY: Brother has diabetes. Mother of heart disorder with an NM and father of COPD/emphysema. SOCIAL HISTORY: He is . He has 3 children. He quit smoking in 1999. He drinks alcohol occasionally. He has been ambulant. ALLERGIES: NKDA. MEDICATIONS: He has been on Revatio 20 mg as directed, aspirin 81 mg daily, Lipitor 20 mg daily, vitamin D3 1000 units daily, Flonase 2 sprays as directed, lisinopril/hydrochlorothiazide 20/12.5 one tablet daily. REVIEW OF SYSTEMS: All other system review and unremarkable except for those mentioned in history of present complaint. PHYSICAL EXAMINATION: GENERAL: On examination in the Emergency Room, he was not having any acute distress. VITAL SIGNS: Temperature 36.8, pulse was 76, blood pressure 132/71, saturation 95% on room air. HEENT: Unremarkable. NECK: Supple. No JVD, no bruit. CHEST: Clear to auscultation bilaterally. HEART: S1, S2 regular. ABDOMEN: Soft and benign, nontender, no organomegaly. Bowel sounds present. EXTREMITIES: Negative. MUSCULOSKELETAL: Did not show any acute arthritis involving any joint. CENTRAL NERVOUS SYSTEM: He was alert, awake, oriented x3 and no focal sensory and/or motor deficit appreciated. LABORATORY DATA: Noted today white count was 10.79, H&H 14.3/40.4, and platelet was 203. Sodium 134, potassium 3.5, chloride 101, carbon dioxide 26, BUN 12, creatinine 0.92, random glucose 154, POC troponin less than 0.030. PT/INR unremarkable. EKG is not in the chart at this time and cardiac catheterization as I mentioned earlier, he has 2-vessel coronary artery disease with complete occlusion of RCA at mid segment level and 70% LAD stenosis. Chest x-ray no acute process. IMPRESSION AND PLAN: 1. Severe coronary artery disease with angina status post cardiac catheterization. He has a complete right coronary artery stenosis and also 70% left anterior descending stenosis. He will be admitted to telemetry unit. Serial cardiac enzymes to rule out any acute coronary syndrome. He will be started with heparin and Nitro paste to control pain. Cardiology consultation. He may need to be transferred to [place] depending on how he does. 2. Hypertension. Blood pressure seems to be controlled. Continue with his usual blood pressure medications. 3. Hyperlipidemia. Continue with statin. 4. Deep venous thrombosis prophylaxis with heparin. 5. Code status: He will be a full code. In my clinical assessment, the beneficiary meets criteria as per CMS for 2 midnight stay in the hospital. FIORELLA
[2017-03-17 04:35] LABS: HEMATOCRIT 36.9 % (42-52); HEMOGLOBIN 12.9 g/dL (14.0-18.0); MEAN CELL VOLUME 86.2 fL (80-100); MEAN CORPUSCULAR HEMOGLOBIN 30.1 pg (25-34); MEAN PLATELET VOLUME 10.2 fL (7.4-10.4); PLATELET COUNT 221 K/uL (130-400); RED CELL DISTRIBUTION WIDTH CV 12.4 % (11.5-14.5); RED CELL DISTRIBUTION WIDTH SD 38.9 fL (36.4-46.3); WHITE BLOOD COUNT 9.54 K/uL (4.8-10.8)
[2017-03-17 04:59] LABS: BLOOD UREA NITROGEN 14 mg/dl (7-18); CALCIUM 8.7 mg/dl (8.5-10.1); CARBON DIOXIDE 31 mmol/L (21-32); CREATININE 0.96 mg/dl (0.60-1.40); GLUCOSE 125 mg/dl (70-99); POTASSIUM 3.9 mmol/L (3.5-5.1); SODIUM 136 mmol/L (136-145)
[2017-03-17 05:27] LABS: PTT PATIENT 77.7 SECONDS (21.0-31.0)
[2017-03-17] MEDS: HEPARIN 25,000 UNIT/500ML D5W 500 ML IV PRN ×2 (05:58→15:24)
[2017-03-17] MEDS ORDERED: ASPIRIN 81 MG ECTAB PO SCH (09:00)
[2017-03-17] MEDS ORDERED: CHOLECALCIFEROL 1000 INTER.UNIT TAB PO SCH (09:00)
[2017-03-17] MEDS ORDERED: FLUTICASONE PROPIONATE NA SPR 16 GM BTL NAE SCH (09:00)
[2017-03-17] MEDS ORDERED: LISINOPRIL/HCTZ 20/12.5MG TAB PO SCH (09:00)
[2017-03-17] MEDS ORDERED: ATORVASTATIN 20 MG TAB PO SCH (09:00)
--- NOTE | 2017-03-17 10:33 | Progress Note ---
Internal Med Progress Note Date of Service: Mar 17, 2017. Provider Documentation: SUBJECTIVE: Patient reports that overnight he was still feeling some chest discomfort which was relived with medications. Is breathing on room air with heparin drip running. Troponins have been negative to date. Patient was seed by cardiology by Dr. Silverio and plan is to transfer the patient to cardiology service at [facility] in [place]. Patient remains without acute distress. He expresses understanding of the transfer plan and agrees fro transfer OBJECTIVE: Exam: General-no acute distress Eyes- EOMI Neck-trachea midline, no JVD Lungs- clear to auscultation bilaterally, no wheezing Heart- regular rate, no murmurs Abdomen- soft, nontender, + bowel sounds Extremities- no edema of lower extremities Neuro- awake, alert, no acute distress ASSESSMENT & PLAN: This is a 67 year old male who previous to this hospital presentation was found to have Severe coronary artery disease with angina status post cardiac catheterization - He has a complete right coronary artery stenosis and also 70% left anterior descending stenosis for which no coronary stenting performed and had plans for followup on03/18/2017 9:00 AM Jaclyn Gould MD Cardiothoracic Surg [facility] Since the cardiac cath, patient had non radiating sternal chest pain for which he returned to [facility] overnight 03/16/17 to 03/17/17. Patient was started on IV heparin drip admitted to telemetry for chest discomfort. Serial troponins have been negative. However with some complaints of chest discomfort overnight with relief by morphine/nitro. Patient was seen by switch repairer Dr. Silverio who requested patient to be transferred to [facility]iology service for further assessment and intervention. The accepting physician is Dr. Delacruz of [facility] Cardiology service. While awaiting transport, patient is to remain on IV heparin drip as per Dr. Silverio. Around 9 Am, patient received aspirin 81 mg, and HCTZ/lisinopril Vital Signs: Date Time Temp Pulse Resp B/P (MAP) Pulse Ox O2 Delivery O2 Flow Rate FiO2 03/17/17 08:00 Room Air 03/17/17 07:16 36.7 62 18 107/68 (81) 95 Room Air 03/17/17 06:36 117/67 (84) 03/17/17 05:07 114/72 (86) 03/17/17 03:50 Room Air 03/17/17 03:31 36.5 54 17 112/63 (79) 96 Room Air 03/17/17 00:47 124/68 (86) 03/16/17 23:20 36.7 64 18 148/79 95 Room Air 03/16/17 22:34 65 15 93 Room Air 03/16/17 22:30 126/78 03/16/17 22:04 70 14 94 Room Air 03/16/17 22:00 123/76 03/16/17 21:36 Room Air 03/16/17 21:34 70 22 94 Room Air 03/16/17 21:30 132/71 03/16/17 21:17 116/75 03/16/17 21:04 76 21 95 Room Air 03/16/17 21:00 72 03/16/17 20:52 36.8 94 20 121/75 94 Room Air 03/16/17 20:52 Room Air 03/16/17 20:40 121/75 Lab Results: Results Past 24 Hours Test 03/16/17 20:18 03/16/17 21:05 03/16/17 23:15 03/17/17 04:16 Range/Units White Blood Count 10.79 9.54 4.8-10.8 K/uL Red Blood Count 4.73 4.28 4.7-6.1 M/uL Hemoglobin 14.3 12.9 14.0-18.0 g/dL Hematocrit 40.4 36.9 42-52 % Mean Corpuscular Volume 85.4 86.2 80-100 fL Mean Corpuscular Hemoglobin 30.2 30.1 25-34 pg Mean Corpuscular Hemoglobin Concent 35.4 35.0 32-36 g/dl Platelet Count 273 221 130-400 K/uL Mean Platelet Volume 10.6 10.2 7.4-10.4 fL Neutrophils (%) (Auto) 69.2 % Lymphocytes (%) (Auto) 22.7 % Monocytes (%) (Auto) 6.9 % Eosinophils (%) (Auto) 0.7 % Basophils (%) (Auto) 0.3 % Neutrophils # (Auto) 7.47 1.4-6.5 K/uL Lymphocytes # (Auto) 2.45 1.2-3.4 K/uL Monocytes # (Auto) 0.74 0.11-0.59 K/uL Eosinophils # (Auto) 0.08 0-0.5 K/uL Basophils # (Auto) 0.03 0-0.2 K/uL RDW Standard Deviation 38.2 38.9 36.4-46.3 fL RDW Coefficient of Variation 12.1 12.4 11.5-14.5 % Immature Granulocyte % (Auto) 0.2 % Immature Granulocyte # (Auto) 0.02 0.00-0.02 K/uL Prothrombin Time 11.6 9.0-12.0 SECONDS Prothromb Time International Ratio 1.1 0.9-1.1 Activated Partial Thromboplast Time 26.7 77.7 21.0-31.0 SECONDS Partial Thromboplastin Ratio 1.0 3.0 Sodium Level 134 136 136-145 mmol/L Potassium Level 3.5 3.9 3.5-5.1 mmol/L Chloride Level 101 102 98-107 mmol/L Carbon Dioxide Level 26 31 21-32 mmol/L Anion Gap 8.0 3.0 3-11 mmol/L Blood Urea Nitrogen 12 14 7-18 mg/dl Creatinine 0.92 0.96 0.60-1.40 mg/dl Est Creatinine Clear Calc Drug Dose 85.1 80.1 ml/min Estimated GFR () 98.0 93.1 Estimated GFR (Non- 84.6 80.3 BUN/Creatinine Ratio 13.2 14.5 10-20 Random Glucose 154 125 70-99 mg/dl Calcium Level 9.5 8.7 8.5-10.1 mg/dl Bedside Troponin I < 0.030 0-0.045 ng/ml Troponin I < 0.015 < 0.015 0-0.045 ng/ml Magnesium Level 2.3 1.8-2.4 mg/dl
--- NOTE | 2017-03-17 10:50 | Discharge Instructions ---
Discharge Instructions Date of Service Mar 17, 2017. Admission Reason for Admission: Cad, Chest Pain Discharge Discharge Diagnosis / Problem: chest pain in apatient with coronary artery disease Discharge Goals Goal(s): Improve function, Increase independence Activity Recommendations Activity Limitations: per Instructions/Follow-up section . Instructions / Follow-Up Instructions / Follow-Up This is a 67 year old male who previous to this hospital presentation was found to have Severe coronary artery disease with angina status post cardiac catheterization - He has a complete right coronary artery stenosis and also 70% left anterior descending stenosis for which no coronary stenting performed and had plans for followup on03/18/2017 9:00 AM Jaclyn Gould MD Cardiothoracic Surg [facility] Since the cardiac cath, patient had non radiating sternal chest pain for which he returned to [facility] overnight 03/16/17 to 03/17/17. Patient was started on IV heparin drip admitted to telemetry for chest discomfort. Serial troponins have been negative. However with some complaints of chest discomfort overnight with relief by morphine/nitro. Patient was seen by field rep Dr. Silverio who requested patient to be transferred to [facility] Cardiology service for further assessment and intervention. The accepting physician is Dr. Delacruz of [facility] Cardiology service. While awaiting transport, patient is to remain on IV heparin drip as per Dr. Silverio. Around 9 Am, patient received aspirin 81 mg, and HCTZ/lisinopril Current Hospital Diet Patient's current hospital diet: AHA Diet (Heart Healthy) Discharge Diet Recommended Diet: N/A (keep NPO except medications for possible cardiac procedure) Pending Studies Studies pending at discharge: no Laboratory Results 03/17/17 04:16 03/17/17 04:16 Test 03/16/17 20:18 03/16/17 21:05 03/17/17 04:16 Immature Granulocyte % (Auto) 0.2 % White Blood Count 10.79 K/uL (4.8-10.8) Red Blood Count 4.73 M/uL (4.7-6.1) 4.28 M/uL (4.7-6.1) Hemoglobin 14.3 g/dL (14.0-18.0) Hematocrit 40.4 % (42-52) Mean Corpuscular Volume 85.4 fL (80-100) 86.2 fL (80-100) Mean Corpuscular Hemoglobin 30.2 pg (25-34) 30.1 pg (25-34) Mean Corpuscular Hemoglobin Concent 35.4 g/dl (32-36) 35.0 g/dl (32-36) Platelet Count 273 K/uL (130-400) Mean Platelet Volume 10.6 fL (7.4-10.4) 10.2 fL (7.4-10.4) Neutrophils (%) (Auto) 69.2 % Lymphocytes (%) (Auto) 22.7 % Monocytes (%) (Auto) 6.9 % Eosinophils (%) (Auto) 0.7 % Basophils (%) (Auto) 0.3 % Neutrophils # (Auto) 7.47 K/uL (1.4-6.5) Lymphocytes # (Auto) 2.45 K/uL (1.2-3.4) Monocytes # (Auto) 0.74 K/uL (0.11-0.59) Eosinophils # (Auto) 0.08 K/uL (0-0.5) Basophils # (Auto) 0.03 K/uL (0-0.2) Immature Granulocyte # (Auto) 0.02 K/uL (0.00-0.02) Prothrombin Time 11.6 SECONDS (9.0-12.0) Prothromb Time International Ratio 1.1 (0.9-1.1) Bedside Troponin I < 0.030 ng/ml (0-0.045) RDW Standard Deviation 38.9 fL (36.4-46.3) RDW Coefficient of Variation 12.4 % (11.5-14.5) Activated Partial Thromboplast Time 77.7 SECONDS (21.0-31.0) Partial Thromboplastin Ratio 3.0 Anion Gap 3.0 mmol/L (3-11) Est Creatinine Clear Calc Drug Dose 80.1 ml/min Estimated GFR () 93.1 Estimated GFR (Non- 80.3 BUN/Creatinine Ratio 14.5 (10-20) Calcium Level 8.7 mg/dl (8.5-10.1) Magnesium Level 2.3 mg/dl (1.8-2.4) Troponin I < 0.015 ng/ml (0-0.045) Medical Emergencies . Who to Call and When: Medical Emergencies: If at any time you feel your situation is an emergency, please call 911 immediately. . Non-Emergent Contact Non-Emergency issues call your: Time Piece Repairer . . "Provider Documentation" section prepared by Abelardo Solorio. . VTE Core Measure Inpt VTE Proph given/why not?: Other Anticoagulation (on heparin drip IV)
--- NOTE | 2017-03-17 10:52 | Discharge Summary ---
Discharge Summary Date of Service Mar 17, 2017. Discharge Summary Admission Date: Mar 16, 2017 at 22:49 Discharge Date: Mar 17, 2017 Discharge Disposition: Acute care facility ([facility], [place]) Principal Diagnosis: chest pain in a patient with coronary artery disease Admission Information HPI (per Admitting provider): PRIMARY CARE PHYSICIAN: Rosas Araujo MD CHIEF COMPLAINT: Chest pain with anxiety and attention since this evening. HISTORY OF PRESENT COMPLAINT: He is a 67-year-old male with significant past medical history of hyperlipidemia, vitamin D deficiency, and also history of old AK and EKG abnormality. Apparently, underwent a cardiac catheterization yesterday. His cardiac cath report came out to be 2-vessel disease with occluded RCA with good collaterals and 70% LAD stenosis and he went home following the cardiac cath and he was supposed to see a cardiac surgeon in [place] on Saturday. He started to have substernal sharp chest pain in the precordium lasted for a few seconds followed by attack of anxiety which he used to get since December of last year when he was diagnosed with abnormal EKG and no old heart attack in the past and that actually took him to the cardiac catheterization lab yesterday. He did not have any shortness of breath with it. He did not have any nausea or vomiting. He did not feel dizzy. He took nitro x3 as per the instructions without any relief of the symptoms and he was taken to the Emergency Room. In ER, he was hemodynamically stable. He received Fentanyl with nitro paste and his pain subsided. His EKG did not show any significant abnormality compared with before and his troponin negative, but given the history of cardiac catheterization and CAD, he was started with heparin and was admitted to telemetry unit. Physical Exam (per Admitting): PHYSICAL EXAMINATION: GENERAL: On examination in the Emergency Room, he was not having any acute distress. VITAL SIGNS: Temperature 36.8, pulse was 76, blood pressure 132/71, saturation 95% on room air. HEENT: Unremarkable. NECK: Supple. No JVD, no bruit. CHEST: Clear to auscultation bilaterally. HEART: S1, S2 regular. ABDOMEN: Soft and benign, nontender, no organomegaly. Bowel sounds present. EXTREMITIES: Negative. MUSCULOSKELETAL: Did not show any acute arthritis involving any joint. CENTRAL NERVOUS SYSTEM: He was alert, awake, oriented x3 and no focal sensory and/or motor deficit appreciated. Hospital Course This is a 67 year old male who previous to this hospital presentation was found to have Severe coronary artery disease with angina status post cardiac catheterization - He has a complete right coronary artery stenosis and also 70% left anterior descending stenosis for which no coronary stenting performed and had plans for followup on03/18/2017 9:00 AM Jaclyn Gould MD Cardiothoracic Surg [facility] Since the cardiac cath, patient had non radiating sternal chest pain for which he returned to [facility] overnight 03/16/17 to 03/17/17. Patient was started on IV heparin drip admitted to telemetry for chest discomfort. Serial troponins have been negative. However with some complaints of chest discomfort overnight with relief by morphine/nitro. Patient was seen by database administrator Dr. Silverio who requested patient to be transferred to [facility] service for further assessment and intervention. The accepting physician is Dr. Delacruz of [facility] service. While awaiting transport, patient is to remain on IV heparin drip as per Dr. Silverio. Around 9 Am, patient received aspirin 81 mg, and HCTZ/lisinopril Total time spent on discharge = 60 minutes This includes examination of the patient, discharge planning, medication reconciliation, and communication with other providers. Discharge Instructions see above
--- NOTE | 2017-03-17 12:24 | CARDIOLOGY CONSULTATION ---
DATE OF CONSULTATION: 03/17/2017 [facility] REASON FOR CONSULTATION: Chest pain. HISTORY OF PRESENT ILLNESS: This is a 67-year-old patient who underwent a cardiac catheterization on Saturday due to an abnormal stress test. He was found to have significant 2-vessel coronary artery disease with occlusion of the right coronary artery in its mid segment filling collaterals from left to right and a high grade stenosis in the mid portion of LAD at the bifurcation of the diagonal and first septal bookie. The patient was scheduled to see cardiothoracic surgery as an outpatient on Saturday at [facility]. The patient last evening, however, had developed his typical symptoms of chest pain with diaphoresis. He took 3 nitroglycerins without complete relief of his discomfort and then called 911. The patient was admitted to the hospital. His chest pain resolved. His cardiac markers have been negative and he has no acute changes on his EKG. ALLERGIES: No known medical allergies. PAST MEDICAL HISTORY: The patient has minimal past medical history other than the above. He is treated for mild essential hypertension, dyslipidemia and has a history of vitamin D deficiency. SOCIAL HISTORY: He is a nonsmoker. He is retired [employer]. FAMILY MEDICAL HISTORY: Noncontributory. REVIEW OF SYSTEMS: A 10-point review of systems is negative except for the history of chief complaint. PHYSICAL EXAMINATION: GENERAL: He is alert and oriented. He is in no acute distress. VITAL SIGNS: Blood pressure is 117/70 and pulse is regular at 62. He is afebrile. HEENT: He is normocephalic. Pupils are equal and reactive to light. Extraocular muscles are intact bilaterally. NECK: The neck veins are flat. Carotids have good upstrokes bilaterally without bruits. Thyroid is nonpalpable. RESPIRATORY: Breath sounds equal bilaterally and clear to auscultation. CARDIOVASCULAR: Heart has regular rhythm. Normal S1 and S2. No S3 or S4. No cardiac rubs or murmurs. GASTROINTESTINAL: Abdomen is soft and nontender without organomegaly. EXTREMITIES: Free of edema, digit clubbing, or cyanosis. NEUROLOGIC: Grossly intact. SKIN: Warm to touch. LYMPH NODES: Negative to palpation. IMPRESSION: 1. Angina. 2. Severe 2-vessel coronary artery disease with a previous inferior posterior wall infarct. RECOMMENDATIONS: The patient was scheduled to go electively out to [facility] in [place] to be evaluated by cardiothoracic surgery for possible bypass. At this point, since he has had a reoccurrence of his symptoms and readmitted to the hospital, I think it is best we transfer him today for an evaluation at [facility]. I have discussed this option with the patient and he is willing to proceed.
== END 2017-03-17 15:50 | disposition short-term general hospital (02) | DRG 303 ==
LOC: EDBD 20:34 → C.EDC 20:35 → C.2T 22:49 → ENRESERV 22:53
PROVIDERS: ADMIT Internal Medicine; ATTEND Hospitalist
DX: I25.119 Atherosclerotic heart disease of native coronary artery with unspecified angina pectoris (principal); I25.2 Old myocardial infarction; I10 Essential (primary) hypertension; E78.5 Hyperlipidemia, unspecified; Z79.82 Long term (current) use of aspirin; Z79.899 Other long term (current) drug therapy; Z87.891 Personal history of nicotine dependence; Z98.890 Other specified postprocedural states